=== PATIENT | female | born 1980 | race Caucasian/White ===

== ENCOUNTER 2016-07-13 16:54 | Emergency (ER) | payer OTHER ==
[2016-07-13 16:59] VITALS: BP 108/86; PULSE 104; TEMP 98.4; BMI 24.9
--- NOTE | 2016-07-13 17:01 | PDOC ---
Rapid Medical Evaluation Time Seen by Provider: 07/13/16 16:57 Medical Evaluation: Allergies Allergy/AdvReac Type Severity Reaction Status Date / Time No Known Allergies Allergy Verified 08/22/15 09:22 07/13/16 16:59 Pt comes with sore throat and flu like symptoms. It all started Tuesday. Yesterday it was worse. She will have hcg, flu culture and strep throat culture. She is afebrile, but she is tachycardic. She appears unwell. States that she ate a tiny piece of sandwich and some water today.
--- NOTE | 2016-07-13 18:18 | PDOC ---
History of Present Illness - General Chief Complaint: Sore Throat Stated Complaint: COLD SYMPTOMS Time Seen by Provider: 07/13/16 16:57 History Source: Patient Exam Limitations: No Limitations - History of Present Illness Initial Comments: 07/13/16 18:12 35 yr female with sore throat ear pain sinus tenderness and discharge. pt states 5 days with fever last night. no meds taken today, no medical history. Past History - Past Medical History Allergies/Adverse Reactions: Allergies Allergy/AdvReac Type Severity Reaction Status Date / Time No Known Allergies Allergy Verified 07/13/16 17:00 Home Medications: Ambulatory Orders Amoxicillin/Potassium Clav [Augmentin 875-125 Tablet] 1 each PO BID #10 tablet 07/13/16 Fluticasone Propionate [Children's Flonase Allergy Rlf] 9.9 ml NS DAILY #60 spray.susp 07/13/16 - Immunization History Immunization Up to Date: Yes - Psycho/Social/Smoking Cessation Hx Anxiety: No Suicidal Ideation: No Smoking Status: No Smoking History: Never smoked Have you smoked in the past 12 months: No Number of Cigarettes Smoked Daily: 0 Information on smoking cessation initiated: No Hx Alcohol Use: No Drug/Substance Use Hx: No Substance Use Type: None Review of Systems - Review of Systems Able to Perform ROS?: Yes Is the patient limited French proficient: No Constitutional: Yes: Symptoms Reported HEENTM: Yes: Symptoms Reported Respiratory: Yes: Symptoms reported *Physical Exam - Vital Signs Last Vital Signs Temp Pulse Resp BP Pulse Ox 98.4 F 104 H 18 108/86 98 07/13/16 16:56 07/13/16 16:56 07/13/16 16:56 07/13/16 16:56 07/13/16 16:56 - Physical Exam General Appearance: Yes: Nourished, Appropriately Dressed HEENT: positive: DYANA, TMs Normal, Nasal Congestion, Sinus Tenderness Neck: positive: Supple Respiratory/Chest: positive: Lungs Clear, Normal Breath Sounds Cardiovascular: positive: Regular Rhythm, Regular Rate Extremity: positive: Normal Inspection Integumentary: positive: Normal Color, Dry, Warm Neurologic: positive: Fully Oriented, Alert, Normal Mood/Affect, Normal Response , Motor Strength 5/5 ED Treatment Course - ADDITIONAL ORDERS Additional order review: Laboratory Results 07/13/16 17:00 Urine HCG, Qual Negative 07/13/16 17:00 Group A Strep Rapid Antigen - Final Throat 07/13/16 17:00 Influenza Types A,B Antigen (ALAN) - Final Nasopharyngeal Swab - Final Medical Decision Making - Medical Decision Making 07/13/16 18:14 cc: sore throat nasal congestion sinus tenderness neg strep and flu will treat for sinusitus *DC/Admit/Observation/Transfer Diagnosis at time of Disposition: Sinusitis Qualifiers: Sinusitis location: frontal Chronicity: acute Recurrence: non-recurrent Qualified Code(s): J01.10 - Acute frontal sinusitis, unspecified - Discharge Dispostion Disposition: HOME Condition at time of disposition: Good - Prescriptions Prescriptions: Amoxicillin/Potassium Clav [Augmentin 875-125 Tablet] 1 each PO BID #10 tablet Fluticasone Propionate [Children's Flonase Allergy Rlf] 9.9 ml NS DAILY #60 spray.susp - Patient Instructions Additional Instructions: take the medication as prescribed eat yogurt 2 cups daily to help prevent stomachache or upset with the antibiotics take motrin (over the counter ibuprofen, motrin or advil ) 400-600mg every 6hrs for pain follow with ENT if symptoms worsen or persist - Post Discharge Activity Work/School Note: Back to Work, Back to School
== END 2016-07-13 18:26 | disposition home or self-care (01) ==
LOC: JERFT 16:54
DX: J01.10 Acute frontal sinusitis, unspecified (principal)
CPT/HCPCS: 84703; 87070; 87430; 87804; 99281-25

== ENCOUNTER 2016-08-18 11:13 | Emergency (ER) | payer OTHER ==
[2016-08-18 11:19] VITALS: BP 145/64; PULSE 64; TEMP 97.9; BMI 24.9
[2016-08-18] MEDS ORDERED: IBUPROFEN 600 MG TABLET (FP) PO ONE ×2 (12:54→12:57)
--- NOTE | 2016-08-18 13:00 | PDOC ---
History of Present Illness - General Chief Complaint: Back Pain Stated Complaint: LOWER BACK PAIN Time Seen by Provider: 08/18/16 12:13 History Source: Patient Exam Limitations: No Limitations - History of Present Illness Initial Comments: 08/18/16 12:54 back strain. States for the past 2 weeks is felt worsen pain primarily when she is sleeping, will try to turn and strain and questionably spasm wakes her from a sound sleep. Patient states that is old into soft and understands need for new bed. 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 Denies any recent trauma, denies fever earache shortness of breath or other symptoms. Has taken no medication for relief of same. 08/18/16 16:53 Occurred: reports: last week Severity: reports: mild Pain Location: reports: back Associated Symptoms (Fall): denies symptoms Past History - Travel Traveled outside of the country in the last 30 days: No Close contact w/someone who was outside of country & ill: No - Past Medical History Allergies/Adverse Reactions: Allergies Allergy/AdvReac Type Severity Reaction Status Date / Time No Known Allergies Allergy Verified 08/18/16 11:19 Home Medications: Ambulatory Orders NK [No Known Home Medication] 08/18/16 Other medical history: denies - Immunization History Immunization Up to Date: Yes - Psycho/Social/Smoking Cessation Hx Anxiety: No Suicidal Ideation: No Smoking Status: No Smoking History: Never smoked Have you smoked in the past 12 months: No Number of Cigarettes Smoked Daily: 0 Information on smoking cessation initiated: No Hx Alcohol Use: No Drug/Substance Use Hx: No Substance Use Type: None Trauma Specific PMHX - Complaint Specific PMHX Arthritis: No Back Injury: No Neck Injury: No Hx Sacro Iliac Joint Dysfunction: No Review of Systems - Review of Systems Able to Perform ROS?: Yes Is the patient limited Maltese proficient: Yes Constitutional: Yes: Symptoms Reported, See HPI. No: Chills, Fever, Malaise HEENTM: No: Symptoms Reported Respiratory: No: Symptoms reported ABD/GI: No: Symptoms Reported Musculoskeletal: Yes: Symptoms Reported, See HPI, Back Pain Integumentary: No: Symptoms Reported All Other Systems: Reviewed and Negative *Physical Exam - Vital Signs Last Vital Signs Temp Pulse Resp BP Pulse Ox 97.9 F 64 18 145/64 99 08/18/16 11:17 08/18/16 11:17 08/18/16 11:17 08/18/16 11:17 08/18/16 11:17 - Physical Exam General Appearance: Yes: Nourished, Appropriately Dressed. No: Apparent Distress, Mild Distress HEENT: positive: DYANA, Normal ENT Inspection, TMs Normal, Pharynx Normal Neck: positive: Supple. negative: Tender Respiratory/Chest: positive: Lungs Clear. negative: Chest Tender Gastrointestinal/Abdominal: positive: Normal Bowel Sounds, Soft. negative: Tender Musculoskeletal: positive: Normal Inspection. negative: Decreased Range of Motion, Muscle Spasm (paravertebral musculature to the lumbar para vertebral spine, no vertebral tenderness crepitus or step-offs. Patient has full range of motion and able to bend at waist touching toes without reproduced pain. 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 Encouraged to evaluate bed and mattress, provide lumbar support for her work and will use NSAIDs for anti-inflammatory pain relief *DC/Admit/Observation/Transfer Diagnosis at time of Disposition: Low back strain Qualifiers: Encounter type: initial encounter Qualified Code(s): S39.012A - Strain of muscle, fascia and tendon of lower back, initial encounter - Discharge Dispostion Disposition: HOME Condition at time of disposition: Stable Admit: No - Referrals Referrals: Obed Fowler MD [Primary Care Provider] - Darrick Luo MD [Staff Physician] - - Patient Instructions Printed Discharge Instructions: DI for Back Strain or Sprain Additional Instructions: Rest, no heavy lifting or exercise until pain is resolved Hot soaks to neck and low back as often as possible/hot showers or Jacuzzis No massage or therapy until spasm is gone Continue ibuprofen 2-200 mg tablets every 6 hours for the next 3 days then as needed for pain and swelling If not significant improvement within 24 hours with medication and rest regime, followup with private physician for change in medications and /or therapy.
== END 2016-08-18 13:01 | disposition home or self-care (01) ==
LOC: JERFT 11:13
DX: S39.012A Strain of muscle, fascia and tendon of lower back, initial encounter (principal); X50.1XXA Overexertion from prolonged static or awkward postures, initial encounter; Y93.89 Activity, other specified; Y92.032 Bedroom in apartment as the place of occurrence of the external cause
CPT/HCPCS: 99281-25

== ENCOUNTER 2016-12-10 10:07 | Emergency (ER) | payer OTHER ==
[2016-12-10 10:19] VITALS: BMI 24.9
[2016-12-10] MEDS ORDERED: SODIUM CHLORIDE 1,000 ML IV STA (11:05)
--- NOTE | 2016-12-10 11:08 | PDOC ---
History of Present Illness - General History Source: Patient Exam Limitations: No Limitations - History of Present Illness Initial Comments: CHIEF COMPLAINT: 36 y/o afebrile female with no significant PMH c/o RLQ abdominal pain since last night. HISTORY OF PRESENT ILLNESS: The patient states her pain started last night and is a constant ache with intermittent periods of more intense pain. She states this morning she started feeling nauseous. She denies f/c, v/d, CP, SOB, back pain, hematuria, dysuria. She has not taken anything for her pain. Vital signs on arrival are within normal limits. REVIEW OF SYSTEMS: GENERAL/CONSTITUTIONAL: No fever/chills. No weakness. No weight change. HEAD, EYES, EARS, NOSE AND THROAT: No change in vision. No ear pain or discharge. No sore throat. CARDIOVASCULAR: No chest pain or shortness of breath. RESPIRATORY: No cough, wheezing, or hemoptysis. GASTROINTESTINAL: +nausea. +RLQ abdominal pain. No vomiting, diarrhea, constipation. GENITOURINARY: No dysuria, frequency, or change in urination. MUSCULOSKELETAL: No joint or muscle swelling or pain. No neck or back pain. SKIN: No rash or easy bruising. NEUROLOGIC: No headache, vertigo, loss of consciousness, or loss of sensation. PHYSICAL EXAM: GENERAL: The patient is awake, alert, and fully oriented, in no acute distress. She is well appearing and ambulatory. HEAD: Normal with no signs of trauma. ENT: Pupils equal, round and reactive to light, extraocular movements intact, sclera anicteric, conjunctiva clear. Neck supple. LUNGS: Clear to auscultation bilaterally. Normal excursion. No respiratory distress or use of accessory muscles. CV: RRR, S1/S2, no MRG. Cap refill < 2 sec. ABDOMEN: Soft, non-distended. TTP of RLQ only. +obturator sign. +Jesse sign. Pain reproduced in RLQ with jumping up and down. No rebound, guarding or rigidity. EXTREMITIES: Normal range of motion, no edema. NEUROLOGICAL: Normal speech, normal gait. CN II-XII grossly intact. PSYCH: Normal mood, normal affect. SKIN: Warm, dry, normal turgor, no rashes or lesions noted. <Marbella Mills - Last Filed: 12/10/16 14:34> <Celia Drew - Last Filed: 12/10/16 18:58> - General Chief Complaint: Pain Stated Complaint: ABD PAIN Time Seen by Provider: 12/10/16 10:48 Past History - Immunization History Immunization Up to Date: Yes - Psycho/Social/Smoking Cessation Hx Anxiety: No Suicidal Ideation: No Smoking Status: No Smoking History: Never smoked Have you smoked in the past 12 months: No Number of Cigarettes Smoked Daily: 0 Hx Alcohol Use: No Drug/Substance Use Hx: No Substance Use Type: None <Marbella Mills - Last Filed: 12/10/16 14:34> <Celia Drew - Last Filed: 12/10/16 18:58> - Past Medical History Allergies/Adverse Reactions: Allergies Allergy/AdvReac Type Severity Reaction Status Date / Time No Known Allergies Allergy Verified 12/10/16 10:17 Home Medications: Ambulatory Orders NK [No Known Home Medication] 08/18/16 *Physical Exam - Vital Signs Last Vital Signs Temp Pulse Resp BP Pulse Ox 98.2 F 72 18 123/77 100 12/10/16 10:17 12/10/16 10:17 12/10/16 10:17 12/10/16 10:17 12/10/16 10:17 <Marbella Mills - Last Filed: 12/10/16 14:34> - Vital Signs Last Vital Signs Temp Pulse Resp BP Pulse Ox 98.4 F 70 17 112/73 98 12/10/16 14:46 12/10/16 14:46 12/10/16 14:46 12/10/16 14:46 12/10/16 14:46 <Celia Drew - Last Filed: 12/10/16 18:58> ED Treatment Course - LABORATORY CBC & Chemistry Diagram: 12/10/16 11:24 12/10/16 11:24 <Marbella Mills - Last Filed: 12/10/16 14:34> - LABORATORY CBC & Chemistry Diagram: 12/10/16 11:24 12/10/16 11:24 - ADDITIONAL ORDERS Additional order review: Laboratory Results 12/10/16 12/10/16 12/10/16 11:24 11:15 11:10 Sodium 139 Potassium 4.2 Chloride 102 Carbon Dioxide 29 Anion Gap 8 BUN 12 D Creatinine 0.6 Creat Clearance w eGFR > 60 Random Glucose 81 Lactic Acid 1.9 Calcium 9.5 Total Bilirubin 0.4 D AST 11 L D ALT 21 D Alkaline Phosphatase 86 LD Total 195 Total Protein 7.4 Albumin 4.0 Urine Color Ltyellow Urine Appearance Clear Urine pH 5.0 Ur Specific [place] 1.020 Urine Protein Negative Urine Glucose (UA) Negative Urine Ketones Negative Urine Blood Negative Urine Nitrite Negative Urine Bilirubin Negative Urine Urobilinogen Negative Ur Leukocyte Esterase Negative Urine HCG, Qual Negative 12/10/16 11:24 RBC 4.77 MCV 84.7 MCHC 33.3 RDW 13.4 MPV 7.5 Neutrophils % 68.4 Lymphocytes % 20.3 Monocytes % 7.5 Eosinophils % 3.0 D Basophils % 0.8 - Medications Given in the ED: ED Medications Discontinued Medications Generic Name Dose Route Start Last Admin Trade Name Freq PRN Reason Stop Dose Admin Sodium Chloride 1,000 mls @ 1,000 mls/hr 12/10/16 11:05 12/10/16 11:32 Normal Saline - IV 12/10/16 12:04 1,000 mls/hr ASDIR STA Administration <Celia Drew - Last Filed: 12/10/16 18:58> Medical Decision Making - Medical Decision Making A/P: 36 y/o female with RLQ pain since last night with associated nausea today. Pt is only tender in RLQ. Patient admits pain is constant. Will r/o appendicitis: 1. Labs 2. UA/culture/hcg 3. NPO 4. CT scan abd/pelvis Labs unremarkable. UA unremarkable. CT scan abd/pelvis IMPRESSION: Hypodensities throughout the liver that may represent cysts versus hemangiomata. Ultrasound follow up recommended. Appendix identified within left lower quadrant. There is no evidence of appendicitis or acute pathology within the abdomen or pelvis. Retroverted uterus with prominent endometrium. Gave the patient all of her results. Provided her with a referral to a GI doctor and strongly recommended she f/u for liver ultrasound. Pt instructed to return to the ER with any worsening or concerning symptoms. The patient verbalizes understanding of all instructions, has no further questions and is awaiting discharge. <Marbella Mills - Last Filed: 12/10/16 14:34> *DC/Admit/Observation/Transfer <Marbella Mills - Last Filed: 12/10/16 14:34> - Attestations Physician Attestion: I reviewed the case with the mid-level practitioner and agree with the mid- level practitioner's assessment, diagnosis and disposition. <Celia Drew - Last Filed: 12/10/16 18:58> Diagnosis at time of Disposition: Liver cyst Abdominal pain Qualifiers: Abdominal location: right lower quadrant Qualified Code(s): R10.31 - Right lower quadrant pain - Discharge Dispostion Disposition: HOME Condition at time of disposition: Good - Referrals Referrals: Obed Fowler MD [Primary Care Provider] - Alejandro Zaragoza MD [Staff Physician] - (Call Tuesday for liver ultrasound) - Patient Instructions Printed Discharge Instructions: DI for Abdominal Pain-Adult Additional Instructions: Discharge Instructions: -Your Cat Scan showed multiple cysts on your liver; you need to call Dr. Zaragoza and schedule a follow up ultrasound -All other results were normal -Please take Motrin or Tylenol for pain -Return to the ER with any worsening or concerning symptoms. Instrucciones de trina: -Carbone Cat Scan mostr quistes mltiples en el hgado; Usted necesita llamar al Dr. Zaragoza y programar un ultrasonido de seguimiento -Todos los dems resultados fueron normales -Por favor tome Motrin o Tylenol para el dolor -Vuelva a la cira de emergencias con cualquier empeoramiento o sntomas relacionados.
[2016-12-10 11:21] LABS: URINE APPEARANCE CLEAR; URINE BILIRUBIN NEGATIVE (NEGATIVE); URINE BLOOD NEGATIVE (NEGATIVE); URINE COLOR LTYELLOW; URINE GLUCOSE (UA) NEGATIVE (NEGATIVE); URINE KETONE NEGATIVE (NEGATIVE); URINE LEUK ESTERASE NEGATIVE (NEGATIVE); URINE NITRITE NEGATIVE (NEGATIVE); URINE PROTEIN NEGATIVE (NEGATIVE); URINE UROBILINOGEN NEGATIVE mg/dL (0.2-1.0)
[2016-12-10 11:53] LABS: BASOPHIL 0.8 % (0-2.0); MCH 28.2 pg (25.7-33.7); MCHC 33.3 g/dl (32.0-36.0); MEAN CELL VOLUME 84.7 fl (80-96); MEAN PLT VOLUME 7.5 fl (7.5-11.1); NEUTROPHILS 68.4 % (42.8-82.8); PLATELET COUNT 354 K/MM3 (134-434); RDW 13.4 % (11.6-15.6); WHITE BLOOD COUNT 7.6 K/mm3 (4.0-10.0)
[2016-12-10 12:31] LABS: ANION GAP 8 (8-16); BILIRUBIN,TOTAL 0.4 mg/dL (0.2-1.0); CALCIUM 9.5 mg/dL (8.5-10.1); CO2 29 mmol/L (21-32); CREATININE 0.6 mg/dL (0.55-1.02); GLUCOSE,RANDOM 81 mg/dL (74-106); LDH 195 U/L (84-246); SGOT/AST 11 U/L (15-37); SGPT/ALT 21 U/L (12-78); TOT PROT 7.4 g/dl (6.4-8.2)
[2016-12-10 12:32] LABS: ALK PHOS 86 U/L (45-117)
[2016-12-10 14:47] VITALS: BP 112/73; PULSE 70; TEMP 98.4
== END 2016-12-10 14:57 | disposition home or self-care (01) ==
LOC: JER 10:07
PROC: 3E0337Z Introduction of Electrolytic and Water Balance Substance into Peripheral Vein, Percutaneous Approach (ICD-10-PCS; principal; 2016-12-10)
DX: K76.89 Other specified diseases of liver (principal); R10.31 Right lower quadrant pain
CPT/HCPCS: 36415; 74177-TC; 80053; 81003; 83605; 83615; 84703; 85025; 87040; 87491; 87591; 96360; 99283-25; Q9967

== ENCOUNTER 2017-02-09 09:47 | Emergency (ER) | payer OTHER ==
[2017-02-09 09:55] VITALS: BP 125/77; PULSE 64; TEMP 98.2; BMI 24.9
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
== END 2017-02-09 10:47 | disposition home or self-care (01) ==
LOC: JERFT 09:47
DX: S41.151A Open bite of right upper arm, initial encounter (principal); Y04.1XXA Assault by human bite, initial encounter; Y93.89 Activity, other specified; Y92.811 Bus as the place of occurrence of the external cause; Y99.0 Civilian activity done for income or pay
CPT/HCPCS: 99281-25